=== PATIENT | female | born 1960 | race Caucasian/White ===

== ENCOUNTER 2018-05-17 15:54 | Inpatient (IN) | payer OTHER ==
[2018-05-17] MEDS ORDERED: MORPHINE SULFATE 4 MG/ML SYRINGE IV STA (16:14)
[2018-05-17] MEDS ORDERED: ONDANSETRON 4 MG/2 ML VIAL IVP STA (16:14)
[2018-05-17] MEDS ORDERED: SODIUM CHLORIDE 0.9% 500 ML IV STA (16:14)
--- NOTE | 2018-05-17 16:21 | ED ---
Abdominal Pain HPI - General Chief Complaint: Abdominal Pain Stated Complaint: abdominal pain Time Seen by Provider: 05/17/18 16:03 Source: patient Mode of arrival: wheelchair Limitations: no limitations - History of Present Illness Initial Comments: Patient is a 57-year-old female presenting for abdominal pain or back pain. She states that she hurt her back on after she was lifting her grandchild. On Friday, she started having diffuse abdominal pain from her lower abdomen up to her epigastric region which is been constant. She tried multiple medication Pepto-Bismol, Tylenol, Motrin and this only made the symptoms worse. She states that she is not been able to have a bowel movement and denies any saddle anesthesia bowel incontinence or lower extremity weakness. She also admits to one episode of vomiting and has had some chills but no fevers. - Related Data Home Medications Medication Instructions Recorded Confirmed No Known Home Medications 10/09/15 05/17/18 Allergies Allergy/AdvReac Type Severity Reaction Status Date / Time codeine Allergy Rash/Hives/ Verified 05/17/18 16:04 swelling Penicillins Allergy Rash/Hives/ Verified 05/17/18 16:04 swelling Review of Systems ROS Statement: Those systems with pertinent positive or pertinent negative responses have been documented in the HPI. Constitutional: Positive for chills, negative for fatigue and fever. HENT: Negative for congestion. Respiratory: Negative for chest tightness, shortness of breath and wheezing. Negative for cough Cardiovascular: Negative for chest pain and palpitations. Gastrointestinal: Positive for abdominal pain. Negative for abdominal distention , diarrhea, positive for nausea and vomiting. Genitourinary: Negative for dysuria. Musculoskeletal: Positive for back pain, negative for lotion any weakness neck pain and neck stiffness. Skin: Negative for color change. Neurological: Negative for dizziness, speech difficulty, weakness and light- headedness. Psychiatric/Behavioral: Negative for agitation and confusion. Negative for anxiety ROS Other: All systems not noted in ROS Statement are negative. Past Medical History Past Medical History: No Reported History History of Any Multi-Drug Resistant Organisms: None Reported Past Surgical History: Appendectomy, Hysterectomy, Tonsillectomy Past Anesthesia/Blood Transfusion Reactions: Postoperative Nausea & Vomiting ( PONV) Past Psychological History: No Psychological Hx Reported Smoking Status: Current every day smoker Past Alcohol Use History: None Reported Past Drug Use History: None Reported General Exam - General Exam Comments Initial Comments: Constitutional: Pt is oriented to person, place, and time. Pt appears well- developed and well-nourished. No distress. HENT: Head: Normocephalic and atraumatic. Eyes: EOM are normal. Neck: Normal range of motion. Neck supple. Cardiovascular: Normal rate, regular rhythm, S1 normal, S2 normal and normal heart sounds. Exam reveals no gallop and no friction rub. No murmur heard. Pulmonary/Chest: Effort normal and breath sounds normal. No tachypnea and no bradypnea. No respiratory distress. No wheezes or rales noted. Abdominal: Soft. Bowel sounds are normal. Pt exhibits no shifting dullness, no distension, no pulsatile liver, no fluid wave, no abdominal bruit and no ascites. There is moderate diffuse abdominal tenderness with voluntary guarding.. There is no rigidity, no rebound, no tenderness at McBurney's point and negative Paulson's sign. Musculoskeletal: Normal range of motion. There is no point tenderness to C- spine, T-spine, L-spine. There is mild tenderness to the left paraspinal muscles in the lumbar sacral region. Muscle strength is 5 out of 5 of the lower extremities. Positive straight leg raise test on the right leg Neurological: Pt is alert and oriented to person, place, and time. No cranial nerve deficit. Skin: Skin is warm and dry. No rash noted. Pt is not diaphoretic. No erythema. No pallor. Psychiatric: Pt has a normal mood and affect. Pt behavior is normal. Thought content normal. Limitations: no limitations Course Vital Signs 05/17/18 05/17/18 16:02 17:16 Temperature 98.3 F Pulse Rate 70 72 Respiratory 18 18 Rate Blood Pressure 143/75 122/61 O2 Sat by Pulse 98 95 Oximetry Medical Decision Making - Medical Decision Making Laboratory studies showed that what was MEASURED 11.2 and there is no significant electrolyte derangements. There is also no elevation of lactic acid. CT of the abdomen was performed and showed distended large bowel consistent with ileus. No free air. Lumbar spine also showed no evidence of fracture urgent stenosis. Because the patient continued multiple antiemetics and continued to have pain, it was felt that the patient should be placed in the hospital for continued treatment. Explained all labs and diagnostic test results and that we will admit patient to hospital. Pt is agreeable to plan and case has been discussed with Dr. Grant and they agree to accept the pt. - Lab Data Result diagrams: 05/17/18 16:05 05/17/18 16:05 Lab Results 05/17/18 05/17/18 05/17/18 Range/Units 16:05 16:05 16:05 WBC 11.2 H (3.8-10.6) k/uL RBC 4.90 (3.80-5.40) m/uL Hgb 15.0 (11.4-16.0) gm/dL Hct 46.1 H (34.0-46.0) % MCV 94.1 (80.0-100.0) fL MCH 30.7 (25.0-35.0) pg MCHC 32.6 (31.0-37.0) g/dL RDW 13.4 (11.5-15.5) % Plt Count 211 (150-450) k/uL Neutrophils % 67 % Lymphocytes % 24 % Monocytes % 6 % Eosinophils % 1 % Basophils % 1 % Neutrophils # 7.5 (1.3-7.7) k/uL Lymphocytes # 2.7 (1.0-4.8) k/uL Monocytes # 0.7 (0-1.0) k/uL Eosinophils # 0.1 (0-0.7) k/uL Basophils # 0.1 (0-0.2) k/uL PT (9.0-12.0) sec INR (<1.2) APTT (22.0-30.0) sec Sodium 140 (137-145) mmol/L Potassium 3.8 (3.5-5.1) mmol/L Chloride 109 H (98-107) mmol/L Carbon Dioxide 19 L (22-30) mmol/L Anion Gap 12 mmol/L BUN 12 (7-17) mg/dL Creatinine 0.60 (0.52-1.04) mg/dL Est GFR (CKD-EPI)AfAm >90 (>60 ml/min/1.73 sqM) Est GFR (CKD-EPI)NonAf >90 (>60 ml/min/1.73 sqM) Glucose 117 H (74-99) mg/dL Plasma Lactic Acid Preet 1.4 (0.7-2.0) mmol/L Calcium 10.2 (8.4-10.2) mg/dL Total Bilirubin 0.8 (0.2-1.3) mg/dL AST 23 (14-36) U/L ALT 30 (9-52) U/L Alkaline Phosphatase 68 (38-126) U/L Total Protein 7.7 (6.3-8.2) g/dL Albumin 4.7 (3.5-5.0) g/dL Lipase 210 (23-300) U/L Urine Color Urine Appearance (Clear) Urine pH (5.0-8.0) Ur Specific [place] (1.001-1.035) Urine Protein (Negative) Urine Glucose (UA) (Negative) Urine Ketones (Negative) Urine Blood (Negative) Urine Nitrite (Negative) Urine Bilirubin (Negative) Urine Urobilinogen (<2.0) mg/dL Ur Leukocyte Esterase (Negative) Urine RBC (0-5) /hpf Urine WBC (0-5) /hpf Ur Squamous Epith Cells (0-4) /hpf 05/17/18 05/17/18 Range/Units 16:05 17:30 WBC (3.8-10.6) k/uL RBC (3.80-5.40) m/uL Hgb (11.4-16.0) gm/dL Hct (34.0-46.0) % MCV (80.0-100.0) fL MCH (25.0-35.0) pg MCHC (31.0-37.0) g/dL RDW (11.5-15.5) % Plt Count (150-450) k/uL Neutrophils % % Lymphocytes % % Monocytes % % Eosinophils % % Basophils % % Neutrophils # (1.3-7.7) k/uL Lymphocytes # (1.0-4.8) k/uL Monocytes # (0-1.0) k/uL Eosinophils # (0-0.7) k/uL Basophils # (0-0.2) k/uL PT 10.0 (9.0-12.0) sec INR 1.0 (<1.2) APTT 22.6 (22.0-30.0) sec Sodium (137-145) mmol/L Potassium (3.5-5.1) mmol/L Chloride (98-107) mmol/L Carbon Dioxide (22-30) mmol/L Anion Gap mmol/L BUN (7-17) mg/dL Creatinine (0.52-1.04) mg/dL Est GFR (CKD-EPI)AfAm (>60 ml/min/1.73 sqM) Est GFR (CKD-EPI)NonAf (>60 ml/min/1.73 sqM) Glucose (74-99) mg/dL Plasma Lactic Acid Preet (0.7-2.0) mmol/L Calcium (8.4-10.2) mg/dL Total Bilirubin (0.2-1.3) mg/dL AST (14-36) U/L ALT (9-52) U/L Alkaline Phosphatase (38-126) U/L Total Protein (6.3-8.2) g/dL Albumin (3.5-5.0) g/dL Lipase (23-300) U/L Urine Color Light Yellow Urine Appearance Clear (Clear) Urine pH 7.5 (5.0-8.0) Ur Specific [place] >1.050 H (1.001-1.035) Urine Protein Negative (Negative) Urine Glucose (UA) Negative (Negative) Urine Ketones Negative (Negative) Urine Blood Negative (Negative) Urine Nitrite Negative (Negative) Urine Bilirubin Negative (Negative) Urine Urobilinogen <2.0 (<2.0) mg/dL Ur Leukocyte Esterase Large H (Negative) Urine RBC 2 (0-5) /hpf Urine WBC 9 H (0-5) /hpf Ur Squamous Epith Cells 2 (0-4) /hpf Disposition Clinical Impression: Ileus Disposition: ADMITTED IP TO THIS [facility] Condition: Fair Referrals: Barron Yeboah DO [Primary Care Provider] - 1-2 days Decision to Admit Reason: Admit from EC Decision Date: 05/17/18 Decision Time: 18:55
[2018-05-17] MEDS: SODIUM CHLORIDE 0.9% 1,000 ML IV STA ×2 (16:22→20:00)
[2018-05-17 16:38] LABS: Partial Thromboplastin Time 22.6 sec (22.0-30.0)
[2018-05-17 16:39] LABS: ALT 30 U/L (9-52); AST 23 U/L (14-36); Albumin 4.7 g/dL (3.5-5.0); Alkaline Phosphatase 68 U/L (38-126); Anion Gap 12 mmol/L; Blood Urea Nitrogen 12 mg/dL (7-17); Calcium 10.2 mg/dL (8.4-10.2); Carbon Dioxide 19 mmol/L (22-30); Chloride 109 mmol/L (98-107); Glucose 117 mg/dL (74-99); Lipase 210 U/L (23-300); Potassium 3.8 mmol/L (3.5-5.1); Sodium 140 mmol/L (137-145); Total Bilirubin 0.8 mg/dL (0.2-1.3); Total Protein 7.7 g/dL (6.3-8.2)
[2018-05-17 16:41] LABS: Basophils # (A) 0.1 k/uL (0-0.2); Basophils % (A) 1 %; Eosinophils # (A) 0.1 k/uL (0-0.7); Eosinophils % (A) 1 %; HCT 46.1 % (34.0-46.0); Lymphocytes # (A) 2.7 k/uL (1.0-4.8); Lymphocytes % (A) 24 %; MCH 30.7 pg (25.0-35.0); MCHC 32.6 g/dL (31.0-37.0); MCV 94.1 fL (80.0-100.0); Mean Platelet Volume 7.4; Monocytes # (A) 0.7 k/uL (0-1.0); Monocytes % (A) 6 %; Neutrophils # (A) 7.5 k/uL (1.3-7.7); Neutrophils % (A) 67 %; Platelet Count 211 k/uL (150-450); RDW 13.4 % (11.5-15.5); WBC 11.2 k/uL (3.8-10.6)
--- NOTE | 2018-05-17 17:39 | CT ---
EXAMINATION TYPE: CT abdomen pelvis w con DATE OF EXAM: 05/17/2018 COMPARISON: 10/16/2015 HISTORY: Low back pain, nausea, vomiitng and abdominal pain x3 days. CT DLP: 326.5 mGycm Automated exposure control for dose reduction was used. TECHNIQUE: Helical acquisition of images was performed from the lung bases through the pelvis. CONTRAST: Performed without Oral Contrast and with IV Contrast, patient injected with 100ml mL of Isovue M300. FINDINGS: There is some patchy atelectasis at the posterior lung bases. There is no pleural effusion. Heart siz e is normal. Liver spleen pancreas appear normal. Bile ducts are not dilated. Gallbladder appears normal. There is no adrenal mass. Kidneys show satisfactory contrast opacification. There is no hydronephrosi s. Air is no retroperitoneal adenopathy. Lumbar spine is intact. There is no sign of pneumoperitoneum . There is no ascites. There is some retained fecal material in the right colon. There are distended gas-filled loops of large bowel. Bladder distends smoothly. There is no evidence of a pelvic mass. Th ere is hysterectomy. Small bowel appears normal. IMPRESSION: DISTENDED LARGE BOWEL CONSISTENT WITH ILEUS. NO FREE AIR. MILD ATELECTASIS AT THE LUNG BASES IS INCRE ASED COMPARED TO OLD EXAM. MILD CONSTIPATION.
--- NOTE | 2018-05-17 17:42 | CT ---
EXAMINATION TYPE: CT lumbar spine w con DATE OF EXAM: 05/17/2018 COMPARISON: None HISTORY: Low back pain, nausea, vomiitng and abdominal pain x3 days. CT DLP: 326.5 mGycm Automated exposure control for dose reduction was used. CONTRAST: CT scan of the lumbar is performed with IV Contrast, patient injected with 100ml mL of Isovue M300. Lumbar vertebra have normal alignment. There is mild narrowing of L5-S1 disc space. There is some pat mikayla linear infiltrate and atelectasis at the posterior lung bases. There is no lumbar paraspinal mass . There is no compression fracture. The posterior elements are intact. Abdominal aorta shows mild ath eromatous change. The sacroiliac joints are intact. There is no evidence of spinal stenosis. IMPRESSION: Mild spondylotic change at L5-S1. No fracture. No spinal stenosis.
[2018-05-17] MEDS ORDERED: METOCLOPRAMIDE 5 MG/ML 2 ML VIAL IVP STA (17:45)
[2018-05-17 17:53] LABS: Appearance,Urine Clear (Clear); Bilirubin,Urine Negative (Negative); Blood,Urine Negative (Negative); Color,Urine Light Yellow; Glucose,Urine (UA) Negative (Negative); Ketones,Urine Negative (Negative); Leukocyte Esterase,Urine Large (Negative); Nitrite,Urine Negative (Negative); PH, Urine 7.5 (5.0-8.0); Protein,Urine Negative (Negative); RBC,Urine 2 /hpf (0-5); Squamous Epithelial Cell,Urine 2 /hpf (0-4); Urobilinogen,Urine <2.0 mg/dL (<2.0); WBC,Urine 9 /hpf (0-5)
[2018-05-17 17:56] LABS: Specific Gravity,Urine >1.050 (1.001-1.035)
[2018-05-17] MEDS ORDERED: BISACODYL 5 MG TABLET.DR PO PRN (18:55)
[2018-05-17] MEDS ORDERED: DOCUSATE 100 MG CAP PO PRN (18:55)
[2018-05-17] MEDS ORDERED: ONDANSETRON 4 MG/2 ML VIAL IVP PRN (18:55)
[2018-05-17] MEDS ORDERED: NALOXONE 0.4 MG/ML 1 ML VIAL IV PRN (18:55)
[2018-05-17] MEDS: SODIUM CHLORIDE 0.9% 1,000 ML IV SCH (21:55)
[2018-05-18] MEDS: SODIUM CHLORIDE 0.9% 1,000 ML IV SCH (08:56)
[2018-05-18 14:13] VITALS: BP 134/75; PULSE 49; RESP 16; TEMP 98.5
--- NOTE | 2018-05-18 15:11 | P.HPIM ---
History of Present Illness 57-year-old female came in with complaints of diffuse abdominal pain is completely resolved constipation. Patient has back issues from the past patient does use narcotics for that which leads to for her to have constipation patient was nauseous yesterday patient also has pain in the epigastric area all of which completely resolved patient took multiple medications for that including Pepto-Bismol Tylenol and Motrin all of which made her symptoms worse. Patient was also having low back pain yesterday which completely resolved now patient does not have any radiculopathy from her back pain. Patient had a CAT scan of the abdomen which showed ileus because of which patient is admitted patient nausea resolved start her on clear liquid diet patient does have good bowel sounds if she is able to move her bowel patient will be started on soft diet and if patient is able to tolerate soft and patient will be discharged today. No fever no chills. Review of Systems REVIEW OF SYSTEMS: CONSTITUTIONAL: No fever, no malaise, no fatigue. HEENT: No recent visual problems or hearing problems. Denied any sore throat. CARDIOVASCULAR: No chest pain, orthopnea, PND, no palpitations, no syncope. PULMONARY: No shortness of breath, no cough, no hemoptysis. GASTROINTESTINAL: No diarrhea, no nausea, no vomiting, no abdominal pain. Normoactive bowel sounds. NEUROLOGICAL: No headaches, no weakness, no numbness. HEMATOLOGICAL: Denies any bleeding or petechiae. GENITOURINARY: Denies any burning micturition, frequency, or urgency. MUSCULOSKELETAL/RHEUMATOLOGICAL: Denies any joint pain, swelling, or any muscle pain. ENDOCRINE: Denies any polyuria or polydipsia. The rest of the 14-point review of systems is negative. Past Medical History Past Medical History: No Reported History Additional Past Medical History / Comment(s): Back injury related to lifting- history of steroid injections years ago. Recent back injury led to patient taking pain medications which led to her ER admission for constipation today. History of Any Multi-Drug Resistant Organisms: None Reported Past Surgical History: Appendectomy, Hysterectomy, Tonsillectomy Past Anesthesia/Blood Transfusion Reactions: Postoperative Nausea & Vomiting ( PONV) Past Psychological History: No Psychological Hx Reported Smoking Status: Current every day smoker Past Alcohol Use History: None Reported Additional Past Alcohol Use History / Comment(s): STARTED AGE 16 (1976) SMOKES 1PPD Past Drug Use History: None Reported - Past Family History Father Family Medical History: No Reported History Mother Family Medical History: No Reported History Medications and Allergies Home Medications Medication Instructions Recorded Confirmed Type No Known Home Medications 10/09/15 05/18/18 History Allergies Allergy/AdvReac Type Severity Reaction Status Date / Time codeine Allergy Rash/Hives/ Verified 05/18/18 13:39 swelling Penicillins Allergy Rash/Hives/ Verified 05/18/18 13:39 swelling Physical Exam Vitals: Vital Signs Temp Pulse Pulse Pulse Resp BP BP 05/18/18 14:00 98.5 F 49 L 16 134/75 05/18/18 07:00 98.3 F 55 L 18 05/17/18 23:53 97.5 F L 58 L 18 115/70 05/17/18 20:16 98.4 F 60 16 130/75 05/17/18 18:50 97.9 F 59 L 16 122/63 05/17/18 17:16 72 18 122/61 05/17/18 16:02 98.3 F 70 18 143/75 Pulse Ox 05/18/18 14:00 98 05/18/18 07:00 05/17/18 23:53 94 L 05/17/18 20:16 98 05/17/18 18:50 98 05/17/18 17:16 95 05/17/18 16:02 98 Intake and Output 05/18/18 05/18/18 05/18/18 06:59 14:59 22:59 Intake Total 600 Balance 600 Intake: Intake, IV Titration 600 Amount Sodium Chloride 0.9% 1, 600 000 ml @ 75 mls/hr IV . [id number] REPLACED BY [facility] Rx#:[id number] Other: # Voids 2 1 Results CBC & Chem 7: 05/17/18 16:05 05/17/18 16:05 Labs: Abnormal Lab Results - Last 24 Hours (Table) 05/17/18 05/17/18 05/17/18 Range/Units 16:05 16:05 17:30 WBC 11.2 H (3.8-10.6) k/uL Hct 46.1 H (34.0-46.0) % Chloride 109 H (98-107) mmol/L Carbon Dioxide 19 L (22-30) mmol/L Glucose 117 H (74-99) mg/dL Ur Specific [place] >1.050 H (1.001-1.035) Ur Leukocyte Esterase Large H (Negative) Urine WBC 9 H (0-5) /hpf Microbiology - Last 24 Hours (Table) 05/17/18 17:30 Urine Culture - Preliminary Urine,Voided Thrombosis Risk Factor Assmnt - Choose All That Apply Any of the Below Risk Factors Present?: Yes Each Factor Represents 1 point: Age 41-60 years Thrombosis Risk Factor Assessment Total Risk Factor Score: 1 Thrombosis Risk Factor Assessment Level: Low Risk Assessment and Plan Plan: -Abdominal pain nausea: Resolved secondary to constipation and ileus further management as mentioned above continue with IV fluids -Chronic low back pain. Patient was asked to use Tylenol on as-needed basis for back pain. -Possibility of gastritis patient will be discharged on Prilosec -Nicotine use: Counseling was provided
--- NOTE | 2018-05-18 15:12 | P.DS ---
Providers Date of admission: 05/17/18 18:58 Attending physician: Barron Yeboah Primary care physician: Barron Yeboah Hospital Course: As mentioned in HPI Patient Condition at Discharge: Fair Plan - Discharge Summary Discharge Rx Participant: Yes New Discharge Prescriptions: New Omeprazole [PriLOSEC] 40 mg PO AC-BRKFST #14 capsule.dr Discharge Medication List Omeprazole [PriLOSEC] 40 mg PO AC-BRKFST #14 capsule. 05/18/18 [Rx] Follow up Appointment(s)/Referral(s): Barron Yeboah DO [Primary Care Provider] - 3 Days
== END 2018-05-18 20:27 | disposition home or self-care (01) | DRG 390 ==
LOC: EC 15:54 → 3SUR 18:58
PROVIDERS: ADMIT Family Medicine; ATTEND Family Medicine
DX: K56.7 Ileus, unspecified (principal); K59.03 Drug induced constipation; T40.605A Adverse effect of unspecified narcotics, initial encounter; F17.210 Nicotine dependence, cigarettes, uncomplicated; G89.29 Other chronic pain; M54.5 Low back pain; K29.70 Gastritis, unspecified, without bleeding; Z90.710 Acquired absence of both cervix and uterus; Z90.49 Acquired absence of other specified parts of digestive tract; Z88.5 Allergy status to narcotic agent; Z88.0 Allergy status to penicillin; Z71.6 Tobacco abuse counseling
CPT/HCPCS: 36415; 51798; 72132; 74177; 80053; 81001; 83605; 83690; 85025; 85610; 85730; 87086; 96361; 96374; 96375; 99285

== ENCOUNTER 2024-04-27 04:50 | Emergency (ER) | payer OTHER ==
[2024-04-27] MEDS ORDERED: MORPHINE SULFATE 4 MG/ML SYRINGE ONE (05:56)
[2024-04-27] MEDS ORDERED: ONDANSETRON ODT 4 MG TAB ONE (05:57)
[2024-04-27] MEDS ORDERED: HYDROmorphone 1 MG/ML 1 ML SYRINGE ONE (07:28)
--- NOTE | 2024-06-16 10:34 | XR ---
Patient: Alison Mccall Ordering Physician: Unknown, Unknown ID: [id number] Phone, Pager: Phone: N/ A Pager: N/A : [phone] Age/Gender: 63Y, F Primary Location: N/A Procedure: XR shoulder complete L T Study Date: 04/27/2024 6:35:00 AM EXAMINATION TYPE: XR shoulder complete LT DATE OF EXAM: 05/09/2024 12:15 PM CLINICAL INDICATION: A COMPARISON: None TECHNIQUE: XR shoulder complete LT; examined in AP, internally rotated and scapular Y projections. FINDINGS: No evidence of acute osseous pathology, joint dislocation, or soft tissue swelling. The remaining po rtions of the visualized chest are unremarkable. Degeneration changes of the acromion, distal clavic le with osteophyte formation. There is osteophyte formation of the glenoid and humeral head. There is joint space narrowing of glenohumeral joint. IMPRESSION: 1. No acute osseous pathology. 2. Mild shoulder osteoarthrosis.
== END 2024-04-27 08:34 | disposition home or self-care (01) ==
LOC: EC 04:50
DX: M19.012 Primary osteoarthritis, left shoulder (principal)